=== PATIENT | male | born 1985 | race Caucasian/White ===

== ENCOUNTER 2022-10-17 15:53 | Emergency (ER) | payer SELFPAY ==
[~2022-10-17] VITALS: Ht 167.6 cm; Wt 65.0 kg
[2022-10-17 16:01] VITALS: BP 117/73
== END 2022-10-17 21:51 | disposition left against medical advice (07) ==
LOC: ER 15:53
DX: Z53.21 Procedure and treatment not carried out due to patient leaving prior to being seen by health care provider (principal)